=== PATIENT | female | born 1995 | race American Indian/Alaskan Native ===

== ENCOUNTER 2017-03-15 13:09 | Outpatient (CLI) | payer MEDICAID ==
[2017-03-15] MEDS ORDERED: LACTATED RINGERS 500 ML IV ONE ×2 (13:28→13:47)
[2017-03-15 13:44] VITALS: BP 116/76
[2017-03-15 14:50] LABS: Bacteria,Urine 1+ /HPF (Negative); Bilirubin,Urine NEG (Negative); Blood,Urine MOD (Negative); Ketones,Urine NEG (Negative); Leukocyte Esterase,Urine NEG (Negative); Mucus,Urine FEW /HPF; Nitrite,Urine NEG (Negative); Protein,Urine <15 mg/dL mg/dL (Negative); Urobilinogen,Urine < 2.0 mg/dL (<2.0)
--- NOTE | 2017-03-15 15:21 | Ultrasound Report ---
FINAL REPORT PROCEDURE: US PELVIC COMPLETE TECHNIQUE: Real-time transabdominal sonography in multiple planes of pelvis was performed with image documentation. This examination was performed without Doppler. Vascular abnormalities, including ovarian torsion, will not be detectable without Doppler evaluation. CPT 43494 HISTORY: verify heart tones with negative urine HCG COMPARISON: No prior studies are available for comparison. FINDINGS: Uterus measures 7.5 cm in length. Endometrial thickness is 1.2 cm. No IUP or retained products of conception are seen. No uterine masses are seen. Ovaries are not seen due to bowel gas. No free pelvic fluid is seen. IMPRESSION: No suggestion of IUP or ectopic is seen.
== END 2017-03-15 14:40 | disposition left against medical advice (07) ==
LOC: TRG 13:09
PROVIDERS: ATTEND Obstetrics & Gynecology
DX: Z32.02 Encounter for pregnancy test, result negative (principal)
CPT/HCPCS: 76856; 81001; 81025

== ENCOUNTER 2017-04-15 10:35 | Emergency (ER) | payer MEDICAID ==
[2017-04-15 11:34] LABS: Basophils % (Auto) 0.8 % (0.0-1.8); Eosinophils % (Auto) 3.9 % (0.0-4.3); Hematocrit 38.5 % (30.3-42.9); Hemoglobin 13.4 gm/dl (10.1-14.3); Mean Corpuscular HGB Conc 35 % (30-34); Mean Corpuscular Hemoglobin 34 pg (28-32); Mean Corpuscular Volume 97 fl (79-97); Platelet Count 299 K/mm3 (140-440); Red Blood Count 3.96 M/mm3 (3.65-5.03); Red Cell Distribution Width 12.6 % (13.2-15.2); White Blood Count 4.4 K/mm3 (4.5-11.0)
[2017-04-15 11:52] LABS: Anion Gap 18 mmol/L; BUN/Creatinine Ratio 13.33; Blood Urea Nitrogen 12 mg/dL (7-17); Calcium 9.4 mg/dL (8.4-10.2); Carbon Dioxide 23 mmol/L (22-30); Chloride 106.7 mmol/L (98-107); Glucose 87 mg/dL (65-100); Potassium 4.6 mmol/L (3.6-5.0); Sodium 143 mmol/L (137-145)
[2017-04-15 12:35] LABS: Bilirubin,Urine NEG (Negative); Blood,Urine LG (Negative); Ketones,Urine 20 mg/dL (Negative); Leukocyte Esterase,Urine TR (Negative); Mucus,Urine 3+ /HPF; Nitrite,Urine NEG (Negative); Urobilinogen,Urine < 2.0 mg/dL (<2.0)
[2017-04-15 12:37] LABS: RBC,Urine > 182.0 /HPF (0.0-6.0)
[2017-04-15 16:03] VITALS: BP 100/75
--- NOTE | 2017-04-15 19:43 | Emergency Department Report ---
ED General Adult HPI - General Chief complaint: Vaginal Bleeding Stated complaint: 27WKS/PAIN Source: patient Mode of arrival: Ambulatory Limitations: No Limitations - History of Present Illness Initial comments: 21-year-old -[place] female comes in concerned that she wants to know if she is or not. Patient states that [facility] and was told she was not she states that she is now feeling movement and she wants to know if she is or not. Patient states she is having some pain and is also mild bleeding and states that it looks like old blood. Patient denies any fever chills no nausea no vomiting no diarrhea she doesn't to constipation last menses was in October. She states her last stool was 2 days ago. She is followed by Dr. Leija [place]. She does admit to drinking plenty of fluids she denies any abdominal pain she did report she had drunk some mineral. Severity scale (0 -10): 3 - Related Data Previous Rx's Medication Instructions Recorded Last Taken Type Azithromycin [Zithromax Z-YECENIA] 250 mg PO DAILY #1 pkg 11/04/14 Unknown Rx Acetaminophen/Codeine [Tylenol 1 tab PO Q6H PRN #12 tab 05/24/15 Unknown Rx /Codeine # 3 tab] Albuterol Sulfate [Ventolin HFA] 2 puff IH Q4H PRN #1 hfa.aer.ad 05/24/15 Unknown Rx Fluticasone [Flonase] 1 spray NS QDAY #1 bottle 05/24/15 Unknown Rx Loratadine [Claritin] 10 mg PO DAILY #30 tablet 05/24/15 Unknown Rx predniSONE [Deltasone] 20 mg PO TID #12 tab 05/24/15 Unknown Rx Nitrofurantoin Osborne/M-Cryst 100 mg PO Q12HR #14 capsule 04/15/17 Unknown Rx [Macrobid CAP] Allergies Allergy/AdvReac Type Severity Reaction Status Date / Time amoxicillin Allergy Severe Swelling Verified 03/15/17 13:28 ED Review of Systems ROS: Stated complaint: 27WKS/PAIN Other details as noted in HPI Constitutional: denies: chills, fever Eyes: denies: eye pain, eye discharge, vision change ENT: denies: ear pain, throat pain Respiratory: denies: cough, shortness of breath, wheezing Cardiovascular: denies: chest pain, palpitations Endocrine: no symptoms reported Gastrointestinal: denies: abdominal pain, nausea, diarrhea Genitourinary: denies: urgency, dysuria, discharge Musculoskeletal: denies: back pain, joint swelling, arthralgia Skin: denies: rash, lesions Neurological: denies: headache, weakness, paresthesias Psychiatric: denies: anxiety, depression Hematological/Lymphatic: denies: easy bleeding, easy bruising ED Past Medical Hx - Past Medical History Hx Asthma: Yes - Surgical History Additional Surgical History: thumb surgery - Social History Smoking Status: Never Smoker Substance Use Type: None - Medications Home Medications: Home Medications Medication Instructions Recorded Confirmed Last Taken Type Azithromycin [Zithromax Z-YECENIA] 250 mg PO DAILY #1 pkg 11/04/14 Unknown Rx Acetaminophen/Codeine [Tylenol 1 tab PO Q6H PRN #12 tab 05/24/15 Unknown Rx /Codeine # 3 tab] Albuterol Sulfate [Ventolin HFA] 2 puff IH Q4H PRN #1 hfa.aer.ad 05/24/15 Unknown Rx Fluticasone [Flonase] 1 spray NS QDAY #1 bottle 05/24/15 Unknown Rx Loratadine [Claritin] 10 mg PO DAILY #30 tablet 05/24/15 Unknown Rx predniSONE [Deltasone] 20 mg PO TID #12 tab 05/24/15 Unknown Rx Nitrofurantoin Osborne/M-Cryst 100 mg PO Q12HR #14 capsule 04/15/17 Unknown Rx [Macrobid CAP] ED Physical Exam - General Limitations: No Limitations General appearance: alert, in no apparent distress - Head Head exam: Present: atraumatic, normocephalic - Eye Eye exam: Present: normal appearance, PERRL - ENT ENT exam: Present: mucous membranes moist - Neck Neck exam: Present: normal inspection - Respiratory Respiratory exam: Present: normal lung sounds bilaterally - Cardiovascular Cardiovascular Exam: Present: regular rate, normal rhythm, normal heart sounds - GI/Abdominal GI/Abdominal exam: Present: soft, normal bowel sounds. Absent: distended, tenderness, guarding, rebound, hyperactive bowel sounds, hypoactive bowel sounds - Extremities Exam Extremities exam: Present: normal inspection, full ROM. Absent: pedal edema - Back Exam Back exam: Present: normal inspection, full ROM - Neurological Exam Neurological exam: Present: alert, oriented X3, normal gait - Psychiatric Psychiatric exam: Present: anxious - Skin Skin exam: Present: warm, dry, intact ED Course Vital Signs 04/15/17 04/15/17 10:52 16:03 Temperature 98.4 F 98 F Pulse Rate 90 81 Respiratory 16 20 Rate Blood Pressure 126/87 100/75 O2 Sat by Pulse 98 99 Oximetry ED Medical Decision Making - Lab Data Result diagrams: 04/15/17 11:04 04/15/17 11:04 - Medical Decision Making Patient's been evaluated by this provider fast track. This provider discussed with patient that her ultrasound that was done in March with negative also her urine on 04/15/2017 hCG was less than 2 And of more data shows that her hCG qualitative was negative March 15 as well as a ultrasound that showed there was no suggestion of IUP or ectopic is seen and was dated 03/15/2017. Evaluation of her urinalysis does show that she has urine that is read as disturbance is cloudy she has 100% protein and ketones 20 large amounts of blood she has esterase trace WBCs of 37 rbc's are greater than 182. It appears this patient has a urinary tract infection we will treat her cortisone to the guidelines will give her Macrobid 100 mg 1 tablet by mouth twice a day for 7 days dispense 14 with no refills. Discussed with patient she needs to follow up with her primary care provider for further evaluation. Discussed with her that there is no guidelines [place] we need to do an ultrasound considering she reports no abdominal pain no nausea no vomiting no dysuria no CVA tenderness test is negative. Critical care attestation.: If time is entered above; I have spent that time in minutes in the direct care of this critically ill patient, excluding procedure time. ED Disposition Clinical Impression: UTI (urinary tract infection) Qualifiers: Urinary tract infection type: site unspecified Hematuria presence: without hematuria Qualified Code(s): N39.0 - Urinary tract infection, site not specified Disposition: DISCHARGED TO HOME OR SELFCARE Is pt being admited?: No Does the pt Need Aspirin: No Condition: Stable Instructions: Urinary Tract Infection in Women (ED) Additional Instructions: Please take antibiotics as prescribed for your urinary tract infection. I highly suggest free to follow up with her primary care provider for further evaluation. This is highly recommended in the next 3-5 days. Prescriptions: Nitrofurantoin Osborne/M-Cryst [Macrobid CAP] 100 mg PO Q12HR #14 capsule Referrals: PRIMARY CARE,MD [Primary Care Provider] - 3-5 Days Forms: Work/School Release Form(ED), Accompanied Note
== END 2017-04-15 19:57 | disposition home or self-care (01) ==
LOC: ED 10:35
DX: N39.0 Urinary tract infection, site not specified (principal); J45.909 Unspecified asthma, uncomplicated; Z88.1 Allergy status to other antibiotic agents
CPT/HCPCS: 36415; 80048; 81001; 84702; 85025; 99283